=== PATIENT | female | born 1935 | race Caucasian/White ===

== ENCOUNTER 2019-07-10 21:10 | Emergency (ER) | payer MEDICARE ==
[2019-07-10] MEDS ORDERED: FAMOTIDINE IV 20 MG/2 ML VIAL IVP ONE (21:16)
[2019-07-10] MEDS ORDERED: METHYLPREDNISOLONE PF 125MG/VIAL IVP ONE (21:16)
[2019-07-10] MEDS ORDERED: DIPHENHYDRAMINE HCL 50 MG/ML VIAL IVP ONE (21:16)
--- NOTE | 2019-07-10 21:26 | Emergency Department Record ---
History of Present Illness - General Chief complaint: Allergic Reaction Stated complaint: ALLERGIC REACTION Time Seen by Provider: 07/10/19 21:13 Source: Patient Mode of Arrival: Wheelchair Limitations: No limitations - History of Present Illness Initial Comments: 84 yo female presents to ED for evaluation of swelling to the arabella-orbital region bilaterally as well as itching "all over". Patient reports that her symptoms began 13 days ago, was seen and evaluated at [facility] and started on Prednisone for her symptoms. Patient denies difficulty in breathing, throat swelling, or wheezing symptoms on examination. 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 MD Complaint: Allergic reaction Onset/Timin -: Week(s) Exposure: Unknown Symptoms: Itching, Rash, Facial swelling Severity: Moderate Treatment Prior to Arrival: Benadryl, Steroids Previous Allergy History: Prior ED visit(s) - Related Data Previous Rx's Medication Instructions Recorded Famotidine [Pepcid] 40 mg PO DAILY #15 tablet 07/10/19 Hydroxyzine Pamoate [Vistaril] 50 mg PO Q8H PRN #15 capsule 07/10/19 Prednisone [Prednisone 20Mg] 20 mg PO BID #12 tab 07/10/19 Allergies Allergy/AdvReac Type Severity Reaction Status Date / Time Penicillins Allergy Severe HIVES Unverified 05/19/19 14:36 Travel/Exposure Screening - Travel/Exposure Within Last 30 Days Have you traveled within the last 30 days?: No - Travel Symptoms Symptom Screening: None Review of Systems Constitutional: Denies: Chills, Fever, Malaise, Night sweats Eyes: Reports: Other (Swelling of the arabella-orbital region bilaterally). Denies: Eye discharge, Eye pain ENT: Denies: Congestion, Dental pain, Ear pain, Epistaxis, Hearing loss Respiratory: Denies: Cough, Dyspnea Cardiovascular: Denies: Chest pain, Dyspnea on exertion Endocrine: Denies: Fatigue, Heat or cold intolerance Gastrointestinal: Denies: Abdominal pain, Nausea, Vomiting Genitourinary: Denies: Incontinence, Retention Musculoskeletal: Denies: Arthralgia, Back pain Skin: Denies: Bruising, Change in color Neurological: Denies: Abnormal gait, Confusion, Headache, Seizure Psychiatric: Denies: Anxiety Hematological/Lymphatic: Denies: Anemia, Blood Clots Past Medical History - SOCIAL HISTORY Smoking Status: Never smoker - RESPIRATORY Hx Respiratory Disorders: Yes - CARDIOVASCULAR Hx Cardio Disorders: Yes Hx Chest Pain: Yes (pt to obtain clearance) Hx Heart Attack: Yes (1985) Hx Hypertension: Yes Comment:: CAD - NEURO Hx Neuro Disorders: Yes Hx Neuropathy: Yes (bilateral hands) - GI Hx GI Disorders: Yes Hx of Polyps: Yes - Hx Genitourinary Disorders: Yes Hx Kidney Stones: Yes Comment:: left kidney cancer, right kidney "size of prune" - ENDOCRINE Hx Endocrine Disorders: Yes Hx Thyroid Disease: Yes - MUSCULOSKELETAL Hx Musculoskeletal Disorders: Yes Hx Arthritis: Yes Hx Fibromyalgia: Yes Comment:: spurs in back - PSYCH Hx Psych Problems: Yes Hx Anxiety: Yes Hx Depression: Yes - HEMATOLOGY/ONCOLOGY Hx Hematology/Oncology Disorders: Yes Hx Cancer: Yes (breast and kidney) Hx Blood Transfusions: Yes (with kidney sx) Physical Exam - General General Appearance: Alert, Oriented x3, Cooperative, Mild distress Limitations: No limitations - Head Head exam: Atraumatic, Normocephalic, Normal inspection Head exam detail: negative: Abrasion, Contusion, Hughes's sign, General tenderness, Hematoma, Laceration - Eye Eye exam: Periorbital swelling. negative: Conjunctival injection, Periorbital tenderness, Scleral icterus - ENT Ear exam: negative: Auricular hematoma, Auricular trauma Nasal Exam: negative: Active bleeding, Discharge, Dried blood, Foreign body Mouth exam: negative: Drooling, Laceration, Muffled voice, Tongue elevation Throat exam: Other (Uvula appears normal on examination, no pharygeal swelling or tongue swelling is present on examination.) - Neck Neck exam: Normal inspection. negative: Meningismus, Tenderness - Respiratory Respiratory exam: Normal lung sounds bilaterally. negative: Rales, Respiratory distress, Rhonchi, Stridor - Cardiovascular Cardiovascular Exam: Regular rate, Normal rhythm, Normal heart sounds - GI/Abdominal GI/Abdominal exam: Soft. negative: Rebound, Rigid, Tenderness - Rectal Rectal exam: Deferred - exam: Deferred - Extremities Extremities exam: Other (Dried skin/chronic venous changes are presents to the lower extremities bilaterally). negative: Pedal edema, Tenderness - Back Back exam: Denies: CVA tenderness (R), CVA tenderness (L) - Neurological Neurological exam: Alert, Oriented X3 - Psychiatric Psychiatric exam: Normal affect, Normal mood - Skin Skin exam: Normal color. negative: Abrasion Type of lesion: negative: abrasion Course - Reevaluation(s) Reevaluation #1: 07/10/19 21:51 Laboratory studies were reviewed and appear grossly unremarkable for an acute process. Patient was updated on results thus far, resting more comfortably on re- examination. Reevaluation #2: 07/10/19 22:38 Patient was reassessed, reports mild improvement in her symptoms. Following reassessment, I did discuss admitting the patient for observation and further treatment vs. outpatient treatment, patient reports that she would prefer to go home. Will treat with Prednisone, Pepcid, and Vistaril as discussed. Patient appears stable for discharge at this time. Medical Decision Making - Lab Data Result diagrams: 07/10/19 21:15 07/10/19 21:15 Disposition Disposition: Discharge Clinical Impression: Urticaria Disposition: Home, Self-Care Condition: (2) Stable Instructions: Urticaria (ED) Additional Instructions: Return to ED if your symptoms worsen or if you have any concerns. Prednisone, Vistaril, and Pepcid as directed. Follow-up with your family doctor in 3-5 days as directed. Prescriptions: Famotidine [Pepcid] 40 mg PO DAILY #15 tablet Prednisone [Prednisone 20Mg] 20 mg PO BID #12 tab Hydroxyzine Pamoate [Vistaril] 50 mg PO Q8H PRN #15 capsule PRN Reason: Itching Forms: Patient Portal Access Time of Disposition: 22:42 Quality - Quality Measures Quality Measures: N/A - Blood Pressure Screening Does Patient Have Any of the Following: Active Dx of HTN Blood Pressure Classification: Hypertensive Reading Systolic Measurement: 144 Diastolic Measurement: 90 Screening for High Blood Pressure: Patient Exclusion, Hx of HTN [G9744]
[2019-07-10 21:27] LABS: HEMATOCRIT 43.1 % (35.0-47.0); HEMOGLOBIN 13.9 gm/dl (11.6-16.0); MEAN CELL VOLUME 101.4 fl (81-97); MEAN CORPUSCULAR HEMOGLOBIN 32.7 pg (27-33); MEAN CORPUSCULAR HGB CONC 32.3 g/dl (32-36); MEAN PLATELET VOLUME 11.2 fl (7.4-10.4); PLATELET COUNT 181 K/uL (130-400); RED BLOOD COUNT 4.25 M/uL (3.80-5.40); RED CELL DISTRIBUTION WIDTH 15.5 % (11.5-14.5); WHITE BLOOD COUNT W/O DIFF 11.4 K/uL (4.2-12.2)
[2019-07-10 21:40] LABS: CREATININE 1.1 mg/dL (0.5-0.9)
[2019-07-10 21:41] LABS: BILIRUBIN,TOTAL 0.5 mg/dL (0.2-1.0); TOTAL PROTEIN 6.7 g/dL (6.6-8.7)
[2019-07-10 21:46] LABS: ALB/GLOB RATIO 1.6 (1.1-1.8); ALBUMIN 4.1 g/dL (4.0-5.0)
[2019-07-10] MEDS ORDERED: HYDROXYZINE PAMOATE 25 MG CAPSULE PO PRN (22:42)
== END 2019-07-10 22:53 | disposition home or self-care (01) ==
LOC: ER 21:10
DX: L50.0 Allergic urticaria (principal); I25.10 Atherosclerotic heart disease of native coronary artery without angina pectoris; I10 Essential (primary) hypertension; I25.2 Old myocardial infarction; Z85.53 Personal history of malignant neoplasm of renal pelvis
CPT/HCPCS: 99284 ×2; 96374; 96375; 80053; 85027; J1200; J2930; J3490